=== PATIENT | female | born 1995 | race Caucasian/White ===

== ENCOUNTER → 2018-01-26 09:02 | Outpatient (CLI) | payer OTHER, MEDICAID, SELFPAY ==
--- NOTE | 2018-01-26 | DI.US.S_ITS ---
PROCEDURE: US ABDOMEN COMPLETE INDICATIONS: IUD PLACEMENT ABDOMINAL BLOATING TECHNIQUE: Real-time scanning was performed of the abdominal and retroperitoneal organs, with image documentation. COMPARISON: None. FINDINGS: Liver: Liver is normal in size and homogeneous in echotexture. Gallbladder: Gallbladder is unremarkable. Wall thickness is within normal limits measuring 1.0 mm. Biliary ducts: Intrahepatic bile ducts are non-dilated. Extrahepatic bile duct caliber measures 4.0 mm. Normal is 6-7 mm or less in diameter, or 10 mm or less post-cholecystectomy. Pancreas: Visualized portions of the pancreas are sonographically normal. Spleen: Spleen is normal in size and homogeneous in echotexture. Kidneys: Kidneys are normal in size and echotexture. Right kidney measures 10.6 cm long; left kidney measures 10.4 cm long. No hydronephrosis or nephrolithiasis. No solid masses. Aorta: Visualized aorta is normal in caliber at less than 3 cm. Iliacs: Proximal common iliac arteries are normal in caliber at less than 2.5 cm. IVC: Intrahepatic inferior vena cava is patent. Miscellaneous: No free abdominal fluid. IMPRESSION: 1. Unremarkable exam. Dictated by: Jossy Barrios M.D. on 01/26/2018 at 11:57 Approved by: Jossy Barrios M.D. on 01/26/2018 at 12:02
--- NOTE | 2018-01-26 | DI.US.S_ITS ---
PROCEDURE: US PELVIC COMPLETE INDICATIONS: IUD PLACEMENT ABDOMINAL BLOATING TECHNIQUE: Real-time scanning was performed of the pelvic organs, with image documentation. Additional endovaginal scanning was necessary due to incomplete visualization of the adnexal and endometrial structures by transabdominal scanning. COMPARISON: [facility], , US ABDOMEN COMPLETE, 01/26/2018, 9:44. FINDINGS: Transabdominal scanning: Limited scanning through the kidneys shows no hydronephrosis. No pathologic free abdominal or pelvic fluid. Endovaginal scanning: Uterus: Uterus is normal in size at 8.2 x 3.4 x 6.1 cm. The endometrium measures 9 mm in combined thickness. IUD is present and appears to be in appropriate position. Ovaries: Right ovary measures 39 x 20 x 21 mm. Left ovary measures 40 x 27 x 22 mm. IMPRESSION: 1. IUD as above. Dictated by: Jossy Barrios M.D. on 01/26/2018 at 12:15 Approved by: Jossy Barrios M.D. on 01/26/2018 at 12:16
== END ==
PROVIDERS: PCP Nurse Practitioner Family; Visit Provider Nurse Practitioner Family
DX: R14.0 Abdominal distension (gaseous) (principal); Z30.431 Encounter for routine checking of intrauterine contraceptive device
CPT/HCPCS: 76700; 76830; 76856

== ENCOUNTER → 2020-03-19 11:09 | Outpatient (ROUT) | payer OTHER, SELFPAY | PROVIDERS: Visit Provider Family Medicine | DX: N89.8 Other specified noninflammatory disorders of vagina (principal) | CPT/HCPCS: 87070; 87205 ==

== ENCOUNTER → 2021-05-08 12:24 | Outpatient (CLI) | payer OTHER, MEDICAID, SELFPAY ==
--- NOTE | 2021-05-08 12:27 | DI.US.S_ITS ---
PROCEDURE: US OB <= 14 WEEKS FETUS INDICATIONS: DATING OUTSIDE/PRIOR DATING DATA: Last menstrual period (LMP): 03/05/2021. LMP-based estimated date of delivery (JIGNA): 12/10/2021. First dating scan (date and location): 05/08/2021. Estimated date of delivery (JIGNA) from first dating scan: 12/08/2021. The calculations are made using the ultrasound generated JIGNA of 12/08/2021. TECHNIQUE: Real-time scanning was performed of the fetuses and maternal pelvic organs, with image documentation. Endovaginal scanning: Performed for better visualization of the fetuses and maternal adnexal structures. COMPARISON: None. FINDINGS: Intrauterine gestation identified with a crown-rump length of 2.7 centimeters, corresponding to gestational age of 9 weeks 3 days. heart rate detected at 163 beats per minute. Yolk sac noted. Small perigestational hemorrhage identified. Small corpus luteum cyst. Ovaries otherwise normal. IMPRESSION: Single live intrauterine gestation with estimated ultrasound age of 9 weeks 3 days. Dictated by: Nicholas France M.D. on 05/08/2021 at 14:17 Approved by: Nicholas France M.D. on 05/08/2021 at 14:19
== END ==
PROVIDERS: PCP Family Medicine; Referring Provider Obstetrics & Gynecology; Visit Provider Internal Medicine
DX: Z36.87 Encounter for antenatal screening for uncertain dates (principal); Z3A.09 9 weeks gestation of pregnancy
CPT/HCPCS: 76801; 76817

== ENCOUNTER → 2021-05-20 11:07 | Outpatient (CLI) | payer OTHER, MEDICAID, SELFPAY ==
[2021-05-20 15:54] LABS: Urine N gonorrhoeae NOT DETECTED
[2021-05-20 16:01] LABS: Urine Chlamydia NOT DETECTED
== END ==
PROVIDERS: PCP Family Medicine; Visit Provider Obstetrics & Gynecology
DX: Z34.81 Encounter for supervision of other normal pregnancy, first trimester (principal); Z3A.11 11 weeks gestation of pregnancy
CPT/HCPCS: 87491; 87591

== ENCOUNTER → 2021-06-06 15:14 | Outpatient (CLI) | payer OTHER, MEDICAID, SELFPAY ==
[2021-06-06 15:48] LABS: Specimen Label NATERA KIT
[2021-06-06 16:03] LABS: Add Manual Diff / Slide Review NO; Basophils Absolute Auto 100 /uL (0-100); Basophils Percent Auto 0.4 % (0-2); Eosinophils Absolute Auto 200 /uL (0-450); Eosinophils Percent Auto 1.3 % (2-4); Hematocrit 38.4 % (36-46); Hemoglobin 13.7 g/dL (12.0-16.0); Lymphocytes Absolute Auto 2000 /uL (1100-4500); Lymphocytes Percent Auto 16.2 % (25-40); Mean Corpuscular HGB Conc 35.7 % (30-36); Mean Corpuscular Hemoglobin 31.6 PG (26-34); Mean Corpuscular Volume 88.5 fL (80-100); Monocytes Absolute Auto 500 /uL (0-900); Monocytes Percent Auto 3.7 % (3-14); Neutrophils Absolute Auto 9800 /uL (1500-7000); Neutrophils Percent Auto 78.4 % (50-75); Platelet Count 278 X10^3/uL (150-400); Red Blood Cell Count 4.34 X10^6/uL (4.0-5.2); Red Cell Distribution Width 12.8 % (11.6-14.8); White Blood Cell Count 12.5 X10^3/uL (4.5-11.0)
[2021-06-06 17:01] LABS: Hepatitis B Surface Antigen NEGATIVE s/c (NEGATIVE); Rubella Antibody IgG 12.5 IU/mL (>15)
[2021-06-06 17:12] LABS: Appearance Urine UA SL CLOUDY; Bilirubin Urine UA NEGATIVE (NEGATIVE); Color Urine UA YELLOW; Glucose Urine UA NEGATIVE (Negative); Ketones Urine UA TRACE (NEGATIVE); Leukocyte Esterase Urine UA NEGATIVE (NEGATIVE); Nitrite Urine UA NEGATIVE (Negative); Occult Blood Urine UA NEGATIVE (Negative); Protein Urine UA NEGATIVE (Negative); Specific Gravity Urine UA >=1.030 (1.000-1.035); Urobilinogen Urine UA 0.2 E.U./dL (0.2)
[2021-06-06 17:15] LABS: pH Urine UA 5.5 (4.5-8.0)
[2021-06-06 17:30] LABS: HIV 1 & 2 Ab/Ag 4th Gen Combo NEGATIVE (NEGATIVE); Hep C Virus Ab w/Reflex Quant NEGATIVE s/c (NEGATIVE)
[2021-06-07 04:26] LABS: RPR Screen Non Reactive (Non Reactive)
[2021-06-07 09:01] LABS: Varicella IgG Antibody <135 index (Immune >165)
== END ==
PROVIDERS: PCP Family Medicine; Referring Provider Obstetrics & Gynecology; Visit Provider Obstetrics & Gynecology
DX: Z36.0 Encounter for antenatal screening for chromosomal anomalies; Z34.90 Encounter for supervision of normal pregnancy, unspecified, unspecified trimester
CPT/HCPCS: 36415; 80055; 81003; 86787; 86803; 86850; 86900; 86901; 87086; 87389

== ENCOUNTER → 2021-07-16 10:44 | Outpatient (CLI) | payer OTHER, MEDICAID, SELFPAY ==
[2021-07-18 20:26] LABS: AFP Value 76.5 ng/mL (.); Gestational Age Ultrasound (.); Insulin Dep Diabetes No (.); OSBR Risk 1IN 3311 (.); Results Report (.); Test Results *Screen Negative* (.)
== END ==
PROVIDERS: PCP Family Medicine; Referring Provider Obstetrics & Gynecology; Visit Provider Obstetrics & Gynecology
DX: Z34.82 Encounter for supervision of other normal pregnancy, second trimester (principal); Z3A.19 19 weeks gestation of pregnancy
CPT/HCPCS: 36415; 82105

== ENCOUNTER → 2021-07-26 10:32 | Outpatient (CLI) | payer OTHER, MEDICAID, SELFPAY ==
--- NOTE | 2021-07-26 10:34 | DI.US.S_ITS ---
PROCEDURE: US OB >= 14 WEEKS FETUS INDICATIONS: Anatomy scan OUTSIDE/PRIOR DATING DATA: Last menstrual period (LMP): 03/05/2021 LMP-based estimated date of delivery (JIGNA): 12/10/2021. First dating scan (date and location): 05/08/2021. Estimated date of delivery (JIGNA) from first dating scan: 12/08/2021. The calculations are made using the ultrasound JIGNA of 12/08/2021. TECHNIQUE: Real-time scanning was performed of the fetus, with image documentation and biometric measurements. COMPARISON: None. FINDINGS: General: A single living intrauterine gestation is present. Presentation: Variable. Placenta: Placental position is anterior , without previa. Amniotic fluid index: 16.4 cm, normal range is 5-24 cm. heart rate: 144 beats per minute. Maternal cervical canal: 4.9 cm long. Normal lower limit is 2.5 cm. biometrics: Biparietal diameter: 22 weeks Head circumference: 21 weeks 3 days Abdominal circumference: 21 weeks 4 days Femur length: 20 weeks 3 days Clinically estimated gestational age: 20 weeks 5 days Composite gestational age from present scan: 21 weeks 3 days Estimated weight and percentile: 399 g; 66 percentile Anatomic survey: Neuro: Ventricles are non-dilated at less than 10 mm. Cisterna magna is normal at 3-11 mm. Cerebellum is normal in size and morphology. Nuchal skin fold: Normal at less than 6 mm between 14-21 weeks gestational age. Face: Nose and lips, facial profile are normal. Spine: No evidence for spina bifida. Heart: 4-chambered heart is present, and normal LVOT. RVOT not well seen. Diaphragm: Diaphragm is intact. Stomach: Left-sided stomach is present. Kidneys: No hydronephrosis. Normal is less than 5 mm in 2nd trimester, less than 7 mm in 3rd trimester. Cord: 3-vessel cord has orthotopic insertion. Bladder: Normal in size. Extremities: All 4 extremities identified. IMPRESSION: 1. Single living IUP redemonstrated and interval growth is normal. 2. RVOT not well visualized; otherwise normal anatomy. Follow-up recommended. We strive to produce accurate, complete, and clear reports of imaging services. To assist us in improving patient care, this report was composed using standard report templates and voice recognition software. Therefore, it may contain abnormal punctuation, insertions and/or omissions. Occasional wrong-word or sound-alike substitutions may occur. Though we review the report and make efforts to correct it, we do recommend that the report be read carefully in proper context to recognize any text inaccuracies. Dictated by: on 07/26/2021 at 11:37 Transcribed by: on 07/26/2021 at 11:39 Approved by: Antonio Verdugo M.D. on 07/31/2021 at 9:46
== END ==
PROVIDERS: PCP Family Medicine; Referring Provider Family Medicine; Visit Provider Family Medicine
DX: Z34.82 Encounter for supervision of other normal pregnancy, second trimester (principal); Z3A.21 21 weeks gestation of pregnancy
CPT/HCPCS: 76811

== ENCOUNTER → 2021-09-10 13:38 | Outpatient (CLI) | payer OTHER, MEDICAID, SELFPAY ==
[2021-09-10 14:55] LABS: Appearance Urine UA CLOUDY; Bilirubin Urine UA NEGATIVE (NEGATIVE); Color Urine UA YELLOW; Glucose Urine UA NEGATIVE (Negative); Ketones Urine UA NEGATIVE (NEGATIVE); Leukocyte Esterase Urine UA NEGATIVE (NEGATIVE); Nitrite Urine UA NEGATIVE (Negative); Occult Blood Urine UA NEGATIVE (Negative); Protein Urine UA NEGATIVE (Negative); Urobilinogen Urine UA 0.2 E.U./dL (0.2)
[2021-09-10 15:58] LABS: Hematocrit 34.7 % (36-46); Hemoglobin 11.9 g/dL (12.0-16.0)
[2021-09-10 16:38] LABS: GTT (PREG) 1 Hour PP 50gm Dose 125 mg/dL (76-139)
== END ==
PROVIDERS: PCP Family Medicine; Referring Provider Obstetrics & Gynecology; Visit Provider Obstetrics & Gynecology
DX: Z34.82 Encounter for supervision of other normal pregnancy, second trimester (principal); N39.0 Urinary tract infection, site not specified; Z3A.26 26 weeks gestation of pregnancy
CPT/HCPCS: 36415; 81003; 82950; 85014; 85018

== ENCOUNTER → 2021-11-07 15:36 | Outpatient (CLI) | payer OTHER, MEDICAID, SELFPAY ==
--- NOTE | 2021-11-07 15:37 | DI.US.S_ITS ---
PROCEDURE: US OB LIMITED INDICATIONS: Growth OUTSIDE/PRIOR DATING DATA: Last menstrual period (LMP): 03/05/21. LMP-based estimated date of delivery (JIGNA): 12/10/21. First dating scan (date and location): 05/08/21. Estimated date of delivery (JIGNA) from first dating scan: 12/08/21. The calculations are made using the sonographic JIGNA of 12/08/21. TECHNIQUE: Real-time scanning was performed of the fetus, with image documentation and biometric measurements. Endovaginal scanning: Not performed COMPARISON: [facility], US, US OB LIMITED, 08/21/2021, 10:52. FINDINGS: General: A single living intrauterine gestation is present. Presentation: Vertex. Placenta: Placental position is anterior , without previa. Amniotic fluid index: 18.1 cm, normal range is 5-24 cm. Single deepest vertical pocket is 8.0 cm. heart rate: 137 beats per minute. Maternal cervical canal: Closed and 5.3 cm long. Normal lower limit is 2.5 cm. biometrics: Biparietal diameter: 9.3 cm, 37 weeks, five days Head circumference: 33.4 cm, 38 weeks, one day Abdominal circumference: 35.3 cm, 39 weeks, two days Femur length: 6.9 cm, 35 weeks, two days Clinically estimated gestational age: 35 weeks, four days Composite gestational age from present scan: 37 weeks, four days Estimated weight and percentile: 3388 g, 97th percentile compared to first-trimester JIGNA. IMPRESSION: 1. Single living in vertex presentation. 2. Composite gestational age by today's measurements is two weeks ahead of the initially assigned gestational age by ultrasound. 3. Estimated weight is at the 97th percentile. 4. Amniotic fluid index is normal. We strive to produce accurate, complete, and clear reports of imaging services. To assist us in improving patient care, this report was composed using standard report templates and voice recognition software. Therefore, it may contain abnormal punctuation, insertions and/or omissions. Occasional wrong-word or sound-alike substitutions may occur. Though we review the report and make efforts to correct it, we do recommend that the report be read carefully in proper context to recognize any text inaccuracies. Dictated by: Mahsa Hilario M.D. on 11/07/2021 at 17:04 Approved by: Mahsa Hilario M.D. on 11/07/2021 at 17:08
== END ==
PROVIDERS: PCP Family Medicine; Referring Provider Obstetrics & Gynecology; Visit Provider Obstetrics & Gynecology
DX: Z34.83 Encounter for supervision of other normal pregnancy, third trimester (principal); Z3A.36 36 weeks gestation of pregnancy
CPT/HCPCS: 76816

== ENCOUNTER → 2021-11-13 19:19 | Outpatient (ROUT) | payer OTHER, MEDICAID, SELFPAY | PROVIDERS: PCP Family Medicine; Visit Provider Nurse Practitioner Obstetrics & Gynecology | DX: Z34.93 Encounter for supervision of normal pregnancy, unspecified, third trimester (principal); Z36.85 Encounter for antenatal screening for Streptococcus B; Z3A.36 36 weeks gestation of pregnancy | CPT/HCPCS: 87081 ==

== ENCOUNTER 2021-12-05 06:53 | Inpatient (IN) | payer OTHER, MEDICAID, SELFPAY ==
--- NOTE | 2021-12-05 07:11 | PM.OBHP.1 ---
OB HPI Date/Time Date of admission: 12/05/21 Date Patient Seen: 12/05/21 Time Patient Seen: 07:12 History of Present Condition Chief complaint: Induction : 3 Para: 1 Estimated Date of Delivery: 12/10/21 Estimated Gestational Age (weeks): 39.2 Narrative: Aide Boles is a 26 year old female @ 39w2d here for scheduled elective induction. She was seen in clinic yesterday afternoon at which time she was 3 cm/70%/-3 and a 60 cc lassiter balloon catheter was placed. The balloon fell out around 0200 this morning. She arrives this morning with mild contractions. She has a history of long second stage and vacuum delivery with her first and elected to pursue an induction this . She has had an uncomplicated course of care and transferred to [facility] at 35w. VS: BP 153/83, HR 74 bpm, T 35.8 C Indications Indication for induction OB: other (elective) History of Present care: good care, initiated at week # (7w), number of visits (15) and pounds weight gain (34) Ultrasounds: normal 1st trimester US and normal mid trimester US Obstetrical complications: none Medical complications: none Preadmission Labs Blood type: O (+) positive -: Antibody screen: negative, GBS status: negative, HBsAG: negative, HIV: negative and RPR/VDLR: negative -: Chlamydia screen: not detected and Gonorrhea screen: not detected -: Rubella: equivocal and Varicella: not immune HCT: 34.7 HCAB: negative PAP: Abnormal (07/2020 ASCUS, +HPV) 1 hr GTT: 125 Narrative: MsAFP negative Evaluation Evaluation Baseline heart rate: 135 Variability: Moderate (11-25) monitor accelerations: Present Monitor Decelerations: Variable Contraction Frequency (minutes): 5 Uterine Contraction Intensity: Mild Status: Category ll (overall reassuring) [facility] Medical History Cervical somatic dysfunction Chronic left-sided low back pain with left-sided sciatica Cranial somatic dysfunction Depression (~2018) Lumbar region somatic dysfunction Pelvic somatic dysfunction PTSD (post-traumatic stress disorder) (~2018) Sacral region somatic dysfunction Tension headache, chronic Vaginal delivery Worsening vision Surgical History [place] teeth extracted (~05/2019) Family History Mother Depression Bipolar 1 disorder Stillbirth Family estrangement Brother Depression Bipolar 1 disorder Sister Depression Bipolar 1 disorder Grandmother Diabetes mellitus Father Heart disease Heavy smoker Social History marital status: unmarried,living together number of children: 1 household members: significant other, children and friend(s) lives independently: Yes caregiver/support person: No housing: house pets and animals: Yes (1 dog) education level: high school occupational status: employed current occupational exposures/hazards: No special jordyn needs: No seatbelt use: always helmet use: Yes water heater temp set < 120 deg: Yes fire extinguisher in home: No carbon monox detector in home: Yes firearms in home: Yes firearms unloaded and locked: Yes do you feel safe at home: Yes Smoking Status: Never smoker second hand exposure: Yes (As a child, often. ) alcohol intake: former substance use type: does not use during the past year weight has: decreased > 10 lbs well-balanced diet: daily or most days daily servings fruits/ve-4 caffeine: Yes eating out: rarely or never Type(s) of exercise: regular exercise and normal ROM and activity frequency: 3-4 times per week duration: 45-60 minutes/day Meds Home Medications and Allergies Home Medications Medication Instructions Recorded Confirmed Type prenat.vits,alem,svk-ifnq-jzadz 1 tab PO DAILY 05/17/21 10/21/21 History Allergies Allergy/AdvReac Type Severity Reaction Status Date / Time INGREDIENT: NKA - NO KNOWN Allergy Unknown Uncoded 10/21/21 10:37 ALLERGIES Review of Systems Review of Systems ROS: Yes All systems reviewed with the patient and are negative except as otherwise documented OB Exam Resp Effort & Inspection: normal respiratory effort Cardio Rate: regular rate Rhythm: regular rhythm Presentation: vertex Assessment and Plan Assessment and Plan Assessment and Plan narrative: Assessment: Primip @ 39w2d Elective induction No indication for GBS prophylaxis Rubella equivocal Elevated BP without dx of HTN Category II FHR, overall reassuring Plan: Routine admit orders with preeclampsia panel Pitocin per protocol, will consider AROM once head well applied Review preferences Reassess in 4 hours or sooner PRN
[2021-12-05 08:43] LABS: Add Manual Diff / Slide Review NO; Basophils Absolute Auto 100 /uL (0-100); Basophils Percent Auto 0.4 % (0-2); Eosinophils Absolute Auto 100 /uL (0-450); Eosinophils Percent Auto 0.8 % (2-4); Hematocrit 31.7 % (36-46); Hemoglobin 10.7 g/dL (12.0-16.0); Lymphocytes Absolute Auto 1700 /uL (1100-4500); Lymphocytes Percent Auto 12.6 % (25-40); Mean Corpuscular HGB Conc 33.9 % (30-36); Mean Corpuscular Hemoglobin 27.8 PG (26-34); Monocytes Absolute Auto 700 /uL (0-900); Monocytes Percent Auto 4.8 % (3-14); Neutrophils Absolute Auto 11200 /uL (1500-7000); Neutrophils Percent Auto 81.4 % (50-75); Platelet Count 182 X10^3/uL (150-400); Red Blood Cell Count 3.86 X10^6/uL (4.0-5.2); Red Cell Distribution Width 14.5 % (11.6-14.8); White Blood Cell Count 13.8 X10^3/uL (4.5-11.0)
[2021-12-05 08:52] LABS: COVID19 -Nasal RAPID Negative (Negative)
[2021-12-05 08:56] LABS: Aspartate Aminotransferase 33 IU/L (14-36); BUN Creatinine Ratio 13.7 (6-22); Blood Urea Nitrogen 7 mg/dL (7-17); Estimated Glomerular Filt Rate > 60 mL/min (>60)
[2021-12-05] MEDS: LACTATED RINGERS 1,000 ML 100 ML IV (09:37)
[2021-12-05] MEDS: OXYTOCIN PREMIX 30 UNIT/500 ML PLAST..BAG IV (09:42)
[2021-12-05 10:03] VITALS: BP 139/91
[2021-12-05 10:16] LABS: Protein (Total) Urine Random 15 mg/dL (0-12); Protein Creatinine Ratio Urine 0.18 GRAM/24H
[2021-12-05] MEDS: CALCIUM CARBONATE 500 MG TAB 1000 MG PO (10:49)
--- NOTE | 2021-12-05 11:16 | PM.OBPNLAB ---
Date/Time Date Patient Seen: 12/05/21 Time Patient Seen: 11:17 Pain Control Pain control: tolerating well Comments: Aide is coping well with more frequent contractions, however they are still described as mild in intensity. She is comfortable on the birthing ball currently. She has had intermittent variable decelerations resolved with upright positioning. She continues to desire an epidural but would like to wait for more intense contractions. VS: BP 120/83, HR 89 bpm, T 35.8 C Pelvic Exam Dilation (cm): 6.5 Effacement (%): 80 station: 0 Amniotic membrane status: Intact Contractions Monitor mode: External Pitocin rate (mU/min): 6 Contraction frequency (min): 3 Contraction duration (min): 1 Contraction pattern: Regular Contraction intensity: Mild Status status: Category ll (overall reassuring) Heart Rate Baseline: 140 Monitor Accelerations: Present Monitor Decelerations: Variable Monitor Variability: Moderate Assessment and Plan Comments: Assessment: Ongoing induction Category II, overall reassuring Plan: Reassess in 4 hours or sooner PRN
[2021-12-05] MEDS: FENT 2MCG/ML BUPIV 0.125% EPI 200 MCG/100 ML PLAST..BAG 8 MCG EPIDURAL (13:38)
--- NOTE | 2021-12-05 14:28 | PM.OBPNLAB ---
Date/Time Date Patient Seen: 12/05/21 Time Patient Seen: 14:28 Pain Control Pain control: epidural (working with anesthesia of left side discomfort) Pelvic Exam Dilation (cm): 8 Effacement (%): 90 station: -2 Amniotic membrane status: Intact (bulging) Comments: OP presentation Contractions Monitor mode: External Pitocin rate (mU/min): 6 Contraction frequency (min): 2 Contraction duration (min): 1 Contraction pattern: Regular Contraction intensity: Moderate Status status: Category ll (overall reassuring) Heart Rate Baseline: 130 Monitor Accelerations: Present Monitor Decelerations: Variable Monitor Variability: Moderate Assessment and Plan Assessment: active labor Plan: continuous present management Comments: Recommend position changes with peanut ball and exaggerated john position. Reassess in 4 hours or sooner, PRN.
--- NOTE | 2021-12-05 15:49 | PM.OBPNLAB ---
Date/Time Date Patient Seen: 12/05/21 Time Patient Seen: 15:50 Pain Control Pain control: epidural Comments: At 1516, the patient had spontaneous rupture of membranes with copious clear fluid and CNM was notified. Immediately following, a prolonged deceleration was noted down to 60 bpm. Pitocin was stopped, patient was assisted to side lying, then to hands and knees, fluid bolus and O2 administered. CNM was called to bedside and MD on unit was notified. Dr. Adler performed vaginal exam, and placed FSE. At the time of CNM arrival at 1535, FHR recovered to 100-120 bpm with moderate variability and intermittent early decelerations. Pelvic Exam Dilation (cm): 8 Effacement (%): 90 station: -1 Amniotic membrane status: Intact (bulging) Comments: edematous cervix Contractions Monitor mode: External Pitocin rate (mU/min): 0 Contraction frequency (min): 2 Contraction pattern: Regular Contraction intensity: Moderate Status status: Category ll (overall reassuring) Heart Rate Baseline: 125 Monitor Accelerations: Absent Monitor Decelerations: Early Monitor Variability: Moderate Comments: FSE in place but inconsistent, now monitoring with external monitor. Assessment and Plan Comments: Assessment: Prolonged deceleration likely due to rapid SROM Category II FHR, overall reassuring Plan: Continue close monitoring.
--- NOTE | 2021-12-05 18:21 | PM.OBPNLAB ---
Date/Time Date Patient Seen: 12/05/21 Time Patient Seen: 18:21 Pain Control Pain control: epidural Comments: Has been sitting up in bed, comfortable. There was an additional prolonged deceleration at 1556 that was shorter and not as deep with good variability. Since that time, the FHR has been primarily Cat I with rare variable decelerations. VS: BP 123/82, HR 74bpm, T 35.7C Temporal Pelvic Exam Dilation (cm): 8 Effacement (%): 90 station: -1 Amniotic membrane status: Intact (bulging) Comments: Significant decrease in edema (to cervix) noted Contractions Monitor mode: External Pitocin rate (mU/min): 0 Contraction frequency (min): 2 Contraction duration (min): 1 Contraction pattern: Regular Contraction intensity: Moderate Status status: Category ll (overall reassuring) Heart Rate Baseline: 135 Monitor Accelerations: Present Monitor Decelerations: Variable Monitor Variability: Moderate Assessment and Plan Assessment: induction ongoing Plan: begin patient augmentation (recommend re-starting pitocin @ 1mu/min) Comments: Notified patient of decrease in swelling to cervix, bit no change in dilation. Pt agrees with plan to slowly restart pitocin and continue to monitor. Reassess in 2-4 hours or sooner, PRN.
--- NOTE | 2021-12-05 21:56 | PM.OBPNLAB ---
Pain Control Comments: Aide has continued to have adequate pain management with epidural. At 1956, deceleration to 75 bpm lasting ~five minutes; pitocin was stopped, pt was positioned in left tilt semi-fowlers, O2 was started. Resolution to a FHR baseline of 130 with moderate variability. Reassuring category II with intermittent variables since that time. Pelvic Exam Dilation (cm): 9.5 Effacement (%): 100 station: +1 Amniotic membrane status: Ruptured Comments: +anterior lip Contractions Monitor mode: External Pitocin rate (mU/min): 0 Contraction frequency (min): 2 Contraction pattern: Regular Contraction intensity: Moderate Status status: Category ll (overall reassuring) Heart Rate Baseline: 140 Monitor Accelerations: Present Monitor Decelerations: Variable Monitor Variability: Moderate Assessment and Plan Comments: Plan: Continue present management with anticipated spontaneous vaginal delivery.
--- NOTE | 2021-12-05 23:20 | P.PCNOB_ITS ---
Events: Labor Induction Labor & Delivery Delivery date: 12/05/21 Intrapartal Events: Deceleration Cervical ripening method: per Garcia bulb protocol Induction method: per pitocin protocol Delivery monitor: external FHT and external uterine Route of delivery: Episiotomy description: None L&D Laceration Description: Perineal - 1st Degree Delivery repair: chromic (3.0) Estimated blood loss (mL): 200 Anesthesia Type: Epidural Complications: Prolonged decelerations x3 during labor. GHTN developed during labor. Narrative: Labor progressed slowly with pitocin off for FHR deceleration. Examined at C/C/+1 and encouraged to push. First push was effective and led to FHR deceleration to 80's. RT was called to standby for the . FHR Recovered between contractions, but continued to decrease with every effective push though a short second stage. NSVB of a viable baby boy in FRED position with a double tight nuchal and single body cord. There was a 2 minute shoulder dystocia that was resolved with McRobert's maneuver and reduction of the posterior arm. was placed on maternal abdomen for drying and stimulation with minimal respiratory effort. At 30 seconds, the cord was double clamped and cut and the was taken to the warmer where a cry was heard immediately. 30 units of pitocin in 500mL LR was started at a bolu for AMTSL for brisk vaginal bleeding. Hospital cord blood sample was collected. Gentle cord traction and a single maternal push led to spontaneous, Schultze delivery of an apparently intact placenta, membranes and 3VC. Fundus immediately form and bleeding slowed. Inspection revealed a short 1st degree perineal laceration which was repaired with 3.0 Chromic in the usual fashion under adequate epidural anesthesia. EBL 200mL. Both mother and baby stable and skin to skin as I left the room. [place] Baby 1: Infant gender: Male Presentation: vertex Position: Left Occiput Anterior Placenta delivery description: Spontaneous Cord Vessel Description: 3 Vessels, Nuchal Cord (x2), Tight and Around Body x1 score (1 min): 6 score (5 min): 8 weight: 3.682 kg Plan for aftercare: Routine care
[2021-12-06] MEDS: KETOROLAC 30 MG/ML VIAL IV (00:19)
[2021-12-06] MEDS: DERMOPLAST SPRAY 20% 60 ML 1 SPRAY TOP (00:19)
[2021-12-06] MEDS: IBUPROFEN 600 MG TABLET PO ×3 (05:48→18:27)
--- NOTE | 2021-12-06 08:30 | PM.OBDS.1 ---
Discharge Providers Provider Date of admission: 12/05/21 06:53 Discharge Date: 12/06/21 Primary care physician: Jairon Escalante MD Consults: 12/06/21 23:10 Consult to Gas Meter Repairer Routine Comment: Discharge provider: Amanda Lal CNM Summary Hospital Course Date Patient Seen: 12/06/21 Diagnoses: O70.0 Hospital Course: Day of delivery 10 hours s/p NSVB w/ 1st degree perineal laceration. Peripartum Data Infant Delivery Method: Natural Vaginal Laceration Description: Perineal - 1st Degree Episiotomy description: None Procedures: O70.0 [place] 1: Gender: Male Disposition of : home Discharge Diagnosis (1) First degree perineal laceration during delivery: Status: Acute (2) Gestational hypertension: Status: Acute Status at Discharge Cognitive/behavioral status at discharge: oriented and calm Functional status at discharge: independent ambulation Overall status at discharge: patient is progressing back to baseline Time Spent with Patient Time attestation: Total time spent providing and/or coordinating discharge services: Objective Labs Result Diagrams: 12/05/21 08:20 12/05/21 08:20 Labs: Laboratory Results - last 24 hr 12/05/21 12/05/21 12/05/21 07:35 07:35 08:20 WBC RBC Hgb Hct MCV MCH MCHC RDW Plt Count Neut % (Auto) Lymph % (Auto) [place] % (Auto) Eos % (Auto) Baso % (Auto) Neut # (Auto) Lymph # (Auto) [place] # (Auto) Eos # (Auto) Baso # (Auto) BUN Creatinine Estimated GFR BUN/Creatinine Ratio Uric Acid AST U Random Total Protein 15 H Urine Creatinine 82.0 Protein/Creatinin Ratio 0.18 SARS-CoV-2 (PCR) Negative Blood Type O Positive Antibody Screen Negative 12/05/21 12/05/21 08:20 08:20 WBC 13.8 H RBC 3.86 L Hgb 10.7 L Hct 31.7 L MCV 82.0 MCH 27.8 MCHC 33.9 RDW 14.5 Plt Count 182 Neut % (Auto) 81.4 H Lymph % (Auto) 12.6 L [place] % (Auto) 4.8 Eos % (Auto) 0.8 L Baso % (Auto) 0.4 Neut # (Auto) 99777 H Lymph # (Auto) 1700 [place] # (Auto) 700 Eos # (Auto) 100 Baso # (Auto) 100 BUN 7 Creatinine 0.51 L Estimated GFR > 60 BUN/Creatinine Ratio 13.7 Uric Acid 4.0 AST 33 U Random Total Protein Urine Creatinine Protein/Creatinin Ratio SARS-CoV-2 (PCR) Blood Type Antibody Screen Exam Vital Signs (past 8 hours): BP 140/90, HR 103, RR 16, T 97.7F Temporal Other: Fundus firm @ U, lochia scant to moderate, perineum well approximated Discharge Plan Discharge Plan Patient Disposition: Home Discharge orders & Medications Prescriptions: New ibuprofen 600 mg Tablet 600 mg PO Q6HR PRN (Reason: Pain, Mild (1-3)) 14 Days Qty: 60 0RF Continued prenat.vits,alem,dbi-uqxp-mxatv Tablet 1 tab PO DAILY Follow up/Referrals: Amanda Lal CNM [[facility]] - (Follow-up in office for BP check 12/09/2021 @ 3:45pm Follow-up by telehealth 12/20/21 @ 11:15am Follow-up in office 01/15/2022 @ 1:45pm) Jairon Escalante MD [Primary Care Provider] - Diet/Activity/Treatments Diet: Regular Activity: pelvic rest x 6 weeks Skin/Wound/Dressing Care Report to your healthcare provider any signs of infection, such as:: chills, fever, increased pain, unusual drainage and unusual redness Visit Report/Discharge Packet Instructions: DI for Depression Discharge Data Primary Care Provider: Jairon Escalante
[2021-12-06 18:11] VITALS: BP 113/98; PULSE 75; RESP 17; TEMP 36.9
== END 2021-12-06 19:00 | disposition home or self-care (01) | DRG 540 ==
PROVIDERS: Admitting Provider Nurse Practitioner Obstetrics & Gynecology; PCP Family Medicine; Referring Provider Nurse Practitioner Obstetrics & Gynecology; Visit Provider Nurse Practitioner Obstetrics & Gynecology
DX: O13.4 Gestational [pregnancy-induced] hypertension without significant proteinuria, complicating childbirth (principal); Z3A.39 39 weeks gestation of pregnancy; Z37.0 Single live birth; O70.0 First degree perineal laceration during delivery; O76 Abnormality in fetal heart rate and rhythm complicating labor and delivery; O42.02 Full-term premature rupture of membranes, onset of labor within 24 hours of rupture; O66.0 Obstructed labor due to shoulder dystocia; O69.81X0 Labor and delivery complicated by cord around neck, without compression, not applicable or unspecified; Z20.822 Contact with and (suspected) exposure to COVID-19
CPT/HCPCS: 01967; 36415; 59050; 82570; 84156; 84450; 84550; 85025; 86850; 86900; 86901; 87635; C9803; G0379; J1885; J2590

== ENCOUNTER 2023-05-31 23:23 | Inpatient (IN) | payer OTHER, MEDICAID, SELFPAY ==
--- NOTE | 2023-05-31 23:35 | PM.OBHP.1 ---
OB HPI Date/Time Date of admission: 05/31/23 Date Patient Seen: 05/31/23 Time Patient Seen: 23:36 History of Present Condition Chief complaint: Labor : 4 Para: 2 Estimated Date of Delivery: 06/04/23 Estimated Gestational Age (weeks): 39w3d Narrative: Aide Boles is a 28 year old female, @ 39w3d by 7w6d US presenting for evaluation of labor. Reports contractions starting around 6pm and now are strong and every 7minutes. Denies vaginal bleeding, leaking of fluid, or s/sx of ORTEGA, vision changes, RUQ pain. Endorses movement. Current notable for LGA (98%, EFW 3416g @ 38w4d). Interested in low-intervention . Partner, Srinivas present. Received care with CNMs. History of Present care: good care, initiated at week # (8w3d) and number of visits (12) Dating criteria: LMP confirmed by 1st trimester US Ultrasounds: abnormal US findings (20w0d US (US dating 22w0d with EFW >95%); 30w5d US (US dating 34w4d with EFW of 2358.2g and 97.%); 35w4d (US dating 38w4d with EFW of 3416g and 98%)) and other (38w6d NILTON of 10.86cm, MVP >3cm) Preadmission Labs Blood type: O (+) positive -: Antibody screen: negative, GBS status: negative, HBsAG: negative, HIV: negative and RPR/VDLR: negative -: Chlamydia screen: not detected and Gonorrhea screen: not detected -: Rubella: immune and Varicella: not immune HCT: 32.6 HCAB: negative PAP: Normal Cell-free DNA: negative Urine: negative 1 hr GTT: 115 Prior (ies) History: FAVD on 12/24/2016; following IOL for GHTN on 12/05/2021 Evaluation Evaluation Baseline heart rate: 115 Variability: Moderate (11-25) monitor accelerations: Present Monitor Decelerations: Absent Contraction Frequency (minutes): 8 Uterine Contraction Intensity: Moderate Status: Category l Dilation (cm): 4 Effacement (%): 50 station: -2 Position of cervix: posterior Consistency: soft PFSH Medical History Lumbar region somatic dysfunction Worsening vision Sacral region somatic dysfunction Pelvic somatic dysfunction Chronic left-sided low back pain with left-sided sciatica Cervical somatic dysfunction Cranial somatic dysfunction Tension headache, chronic PTSD (post-traumatic stress disorder) (~2018) Depression (~2018) Vaginal delivery Surgical History [place] teeth extracted (~05/2019) Family History Mother Depression Bipolar 1 disorder Stillbirth Family estrangement Brother Depression Bipolar 1 disorder Sister Depression Bipolar 1 disorder Grandmother Diabetes mellitus Father Heart disease Heavy smoker Social History marital status: unmarried,living together number of children: 1 household members: significant other, children and friend(s) lives independently: Yes caregiver/support person: No housing: house pets and animals: Yes (1 dog) education level: high school occupational status: employed current occupational exposures/hazards: No special jordyn needs: No seatbelt use: always helmet use: Yes water heater temp set < 120 deg: Yes fire extinguisher in home: No carbon monox detector in home: Yes firearms in home: Yes firearms unloaded and locked: Yes do you feel safe at home: Yes Smoking Status: Never smoker second hand exposure: Yes (As a child, often. ) alcohol intake: former substance use type: does not use during the past year weight has: decreased > 10 lbs well-balanced diet: daily or most days daily servings fruits/ve-4 caffeine: Yes eating out: rarely or never Type(s) of exercise: regular exercise and normal ROM and activity frequency: 3-4 times per week duration: 45-60 minutes/day Meds Home Medications and Allergies Home Medications Medication Instructions Recorded Confirmed Type prenat.vits,alem,biy-tnbd-mznvd 1 tab PO DAILY 05/17/21 05/29/23 History Allergies Allergy/AdvReac Type Severity Reaction Status Date / Time INGREDIENT: NKA - NO KNOWN Allergy Unknown Uncoded 05/29/23 08:44 ALLERGIES Review of Systems Review of Systems ROS: Yes All systems reviewed with the patient and are negative except as otherwise documented OB Exam Vital signs Blood Pressure: 155/100 Pulse Rate: 77 Temperature: 96.8 F Resp Effort & Inspection: normal respiratory effort and able to speak in complete sentences Auscultation: clear to auscultation bilaterally Cardio Rate: regular rate Rhythm: regular rhythm Heart Sounds: S1 normal and S2 normal Extremities Lower extremity: Yes normal to inspection Presentation: vertex Objective Imaging US - abdomen: Radiologist's impression: OB US>14wks, Growth: Radiologist's impression: [address] [address] Ultrasound Report Signed Patient: Aide Boles MR#: [id number] : 1995 Acct:[id number] Age/Sex: 28 / F Date of Service: 05/31/23 Loc: LABOR [id number] Accession Number: [id number] Procedure: US OB limited Ordering Provider: Amanda Lal C.N.M. PROCEDURE: US OB LIMITED INDICATIONS: LABOR - MACROSOMIA OUTSIDE/PRIOR DATING DATA: Last menstrual period (LMP): 08/21/22. LMP-based estimated date of delivery (JIGNA): 06/04/23. First dating scan (date and location): 08/15/22. Estimated date of delivery (JIGNA) from first dating scan: 05/21/23. The calculations are made using the clinical JIGNA of 06/04/23. TECHNIQUE: Real-time scanning was performed of the fetus, with image documentation. Endovaginal scanning: Not performed COMPARISON: [facility], US, US OB GROWTH, 05/04/2023, 8:52. FINDINGS: A single living intrauterine gestation is present. Presentation: Vertex. Placenta: Placental position is anterior and right. Amniotic fluid index: 9.6 cm, normal range is 5-24 cm. Single deepest vertical pocket is 4.7 cm. heart rate: 133 beats per minute. Maternal cervical canal: Not seen Clinically estimated gestational age: 39 weeks three days Biparietal diameter 9.7 cm, 39 weeks four days Head circumference 34.9 cm, 40 weeks four days Abdominal circumference 36.8 cm, 40 weeks five days Femur length 7.6 cm, 38 weeks six days Composite gestational age 40 weeks 0 days Estimated weight 4019 g, 87th percentile IMPRESSION: Single living in vertex presentation has an estimated weight at the 87th percentile. Anterior placenta. Normal amniotic fluid volume. Dictated by: Mahsa Hilario M.D. on 06/01/2023 at 0:22 Approved by: Mahsa Hilario M.D. on 06/01/2023 at 0:34 Labs 06/01/23 00:25 06/01/23 00:25 Assessment and Plan Assessment and Plan Assessment and Plan narrative: A: Term multipara Early labor Hypertension Anemia Cat 1 FHR P: Admit to L&D Continue to monitor BPs for diagnositic criteria of GHTN vs pre-eeclampsia, urine Pr:Cr pending Will consult OB for severe range BPs x10 minutes Counseled on option for primary and provided RBA of primary vs given hx of 2min shoulder dystocia and current with 39w3d US showing AC>HC. Aide is discussing this with her partner and they will let us know their decision. May switch to intermittent auscultation for FHT monitoring Anticipated active management of third stage Recheck labor progression in 4-6hr or sooner as needed
--- NOTE | 2023-06-01 | PATH_ITS ---
[facility] Accession Number: [id number] No. of containers..01 Tissue . 01 Material submitted: . fallopian tube - BILATERAL FALLOPIAN TUBES . 01 Diagnosis: Bilateral Fallopian Tubes, Segment Excision: Segments of benign fallopian tubes without pathologic abnormalities. MRV 06/04/2023 1657 Local . 01 Electronically signed: . Yoel Fox MD, Pathologist NPI- [id number] . 01 Gross description: . The specimen is received in formalin labeled with the patient's name, , and bilateral fallopian tubes, consists of two unoriented, fimbriated fallopian tubes measuring 10.3 x 1.1 cm and 7.8 x 1.0 cm, respectively. Both tubes have violaceous smooth serosa with no cystic structures identified. The lumen is stellate and unremarkable. Band Salvager sections are submitted as follows: . A1: Longer fallopian tube to include one-half of bisected fimbriae and cross sections. A2: [place] fallopian tube to include one-half of bisected fimbriae and cross sections. ([id number]) /MRV 06/04/2023 1715 Local . 01 Pathologist provided ICD-10: Z30.2 . 01 CPT . 060112 Specimen Comment: A courtesy copy of this report has been sent to [facility] Pathology Performed at: 01 [facility] [address] [place] [address], [place], [place] [id number] MD Stephen Haley MD Phone: [phone]
[2023-06-01 00:41] LABS: Add Manual Diff / Slide Review NO; Basophils Absolute Auto 200 /uL (0-100); Basophils Percent Auto 1.4 % (0-2); Eosinophils Absolute Auto 200 /uL (0-450); Eosinophils Percent Auto 1.2 % (2-4); Hematocrit 31.3 % (36-46); Hemoglobin 10.2 g/dL (12.0-16.0); Lymphocytes Absolute Auto 2500 /uL (1100-4500); Lymphocytes Percent Auto 17.2 % (25-40); Mean Corpuscular HGB Conc 32.8 % (30-36); Mean Corpuscular Hemoglobin 24.5 PG (26-34); Mean Corpuscular Volume 74.8 fL (80-100); Monocytes Absolute Auto 700 /uL (0-900); Monocytes Percent Auto 4.4 % (3-14); Neutrophils Absolute Auto 11200 /uL (1500-7000); Neutrophils Percent Auto 75.8 % (50-75); Platelet Count 203 X10^3/uL (150-400); Red Blood Cell Count 4.18 X10^6/uL (4.0-5.2); Red Cell Distribution Width 16.9 % (11.6-14.8); White Blood Cell Count 14.8 X10^3/uL (4.5-11.0)
[2023-06-01 00:46] VITALS: BP 155/100
[2023-06-01 00:57] VITALS: PULSE 77; TEMP 36
[2023-06-01 00:57] LABS: Alanine Aminotransferase 14 IU/L (<35); Albumin 3.7 g/dL (3.5-5.0); Albumin Globulin Ratio 1.1 (1.0-2.8); Alkaline Phosphatase 323 U/L (38-126); Aspartate Aminotransferase 26 IU/L (14-36); Bilirubin Total 0.6 mg/dL (0.2-1.3); Blood Urea Nitrogen 11 mg/dL (7-17); Calcium 9.5 mg/dL (8.4-10.2); Carbon Dioxide 21 mmol/L (22-32); Chloride 105 mmol/L (98-107); Estimated Glomerular Filt Rate > 60 mL/min (>60); Globulin 3.5 g/dL (1.7-4.1); Glucose 91 mg/dL (70-100); HEMOLYSIS < 15 (0-50); Potassium 3.8 mmol/L (3.4-5.1); Sodium 133 mmol/L (137-145); Total Protein 7.2 g/dL (6.3-8.2)
[2023-06-01 01:19] VITALS: BP 155/100
--- NOTE | 2023-06-01 02:28 | PM.OBPNLAB ---
Date/Time Date Patient Seen: 06/01/23 Time Patient Seen: 02:28 Pain Control Pain control: tolerating well Comments: Aide asked more questions about what the steps of a and the potential risk of c-sections vs and the topics were discussed further with CNM. Aide decided to proceed with a . Aide continues to desire a bilateral tubal ligation for which she signed a consent in >30 days ago. Pelvic Exam Dilation (cm): 7 Effacement (%): 100 station: -1 Amniotic membrane status: Intact Contractions Monitor mode: External Contraction frequency (min): 3 Contraction duration (min): 1 Contraction intensity: Moderate Status status: Category l Heart Rate Baseline: 115 Monitor Accelerations: Present Monitor Decelerations: Absent Monitor Variability: Moderate Assessment and Plan Assessment: active labor Plan: Comments: A: Term multipara Active labor Macrosomia with a history of a shoulder dystocia (P2) Cat I FHR P: Consulted OB Back-up/ for a primary and he is on his way. RN and Coordinator notified.
[2023-06-01 02:47] LABS: Appearance Urine UA CLEAR; Bilirubin Urine UA NEGATIVE (NEGATIVE); Color Urine UA YELLOW; Glucose Urine UA NEGATIVE (Negative); Ketones Urine UA TRACE (NEGATIVE); Leukocyte Esterase Urine UA NEGATIVE (NEGATIVE); Nitrite Urine UA NEGATIVE (Negative); Occult Blood Urine UA NEGATIVE (Negative); Protein Urine UA 1+ (Negative); Urobilinogen Urine UA 0.2 E.U./dL (0.2); pH Urine UA 6.5 (4.5-8.0)
[2023-06-01] MEDS: AZITHROMYCIN 500 MG in DEXTROSE 5% IN WATER 250 ML 250 MG IV (02:56)
--- NOTE | 2023-06-01 03:11 | SUR.OPER ---
Supine on Padded OR bed, head on pillow, safety belt at thigh, arms secured on padded arm boards at <90 degrees abduction. Bump under right buttock. Legs uncrossed with pillow under knees, gel pad to heels, tape over blanket to lower legs.
--- NOTE | 2023-06-01 03:29 | P.PNOB_ITS ---
Date/Time Date Patient Seen: 06/01/23 Time Patient Seen: 03:29 Pain Control Pain control: epidural Pelvic Exam Dilation (cm): 7 Effacement (%): 100 station: -1 Amniotic membrane status: Intact Contractions Monitor mode: External Contraction frequency (min): 3 Contraction intensity: Moderate Status status: Category l Assessment and Plan Assessment: other Plan: Comments: I have been contacted by the patient's primary midwifery provider, Amanda Lal CNM, regarding performance of primary section due to the patient's history of shoulder dystocia with an infant that is estimated to be proximally 1 lb smaller than her current . After thorough counseling by her housekeeping supervisor, the patient has decided to proceed with prophylactic section to avoid risk of recurrent shoulder dystocia. Based on the patient's clinical history I concur with that recommendatin and I have counseled the patient regarding alternatives, risks, benefits, and potential complications associated with primary section. In addition the patient has expressed desire for permanent sterilization. She was counseled regarding alternatives, risks, benefits, and potential complications associated with bilateral salpingectomy. Patient understands that this is a procedure which will result in her permanently and irreversibly being unable to bear children without benefit of assisted reproductive technology. Further the patient understands that the procedure does carry with it a small (1-05/999) risk of failure to prevent and should such a occur it is highly likely that that would be an ectopic gestation. With full understanding of the above, a written consent was executed, signed, and witnessed this date.
--- NOTE | 2023-06-01 03:36 | PM.PREOP ---
Pre-operative Note COVID-19 COVID-19 status: Not tested Interval Note History & Physical reviewed/Exam performed by Physician: Yes Changes to H&P: No
[2023-06-01] MEDS: CEFAZOLIN 2 GM/100 ML PREMIX 100 ML IV (03:50)
--- NOTE | 2023-06-01 04:18 | RT ---
Called to OR 3 for routine do to last child having a shoulder displaisa. Baby boy is stable at this time
--- NOTE | 2023-06-01 05:11 | PM.PROC.1 ---
Procedures Date/Time Date of procedure: 06/01/23 Time of procedure: 04:07 General Procedure description: Telegraphic Instrument Supervisor Documentation I assisted the OB special education resource teacher in the section for this patient. My responsibilities included retracting and suctioning, providing fundal pressure during delivery and following with suture during closure. Please see the OB's note for details of the surgery.
[2023-06-01 05:15] VITALS: BP 141/94; PULSE 116; RESP 17; TEMP 36.3; O2SAT 100
--- NOTE | 2023-06-01 05:17 | PM.OBCS.1 ---
Operative Date/Time/Diagnoses Date of procedure: 06/01/23 Time of procedure: 03:30 Pre-op diagnosis: Intrauterine gestation, spangler, 39+4 weeks EGA History of shoulder dystocia w/ prior macrosomia/LGA infant Request for sterilization Post-op diagnosis: same Procedure & Clinicians Procedure: Primary section (Low transverse cervical) Same procedure as scheduled: Yes Indications: I have been contacted by the patient's primary midwifery provider, Amanda Lal CNM, regarding performance of primary section due to the patient's history of shoulder dystocia with an that is estimated to be proximally 1 lb smaller than her current . After thorough counseling by her service center assistant, the patient has decided to proceed with prophylactic section to avoid risk of recurrent shoulder dystocia. Based on the patient's clinical history I concur with that recommendation and I have counseled the patient regarding alternatives, risks, benefits, and potential complications associated with primary section. In addition the patient has expressed desire for permanent sterilization. She was counseled regarding alternatives, risks, benefits, and potential complications associated with bilateral salpingectomy. Patient understands that this is a procedure which will result in her permanently and irreversibly being unable to bear children without benefit of assisted reproductive technology. Further the patient understands that the procedure does carry with it a small (1-05/999) risk of failure to prevent and should such a occur it is highly likely that that would be an ectopic gestation. With full understanding of the above, a written consent was executed, signed, and witnessed this date. Surgeon: Jamal Adler Facing Cutting Machine Operator: Amanda Lal Reason for Facing Cutting Machine Operator: Facing Cutting Machine Operator required for the safe, effective, and timely completion of this surgery. Anesthesia Type: Spinal Operative Notes Findings: Viable male BW 4152 g (9 lb 2.5 oz), Apgars 8/8, delivered from the vertex presentation. Normal gravid anatomy. Closure Type: primary Specimen(s): cord blood Intraoperative meds administered: Ketorolac and Pitocin Applied: Catheter Estimated Blood Loss (mL): 500 Blood products transfused: none Procedure in detail: With her informed written consent, the patient was taken to the operating room and placed in the supine position for a primary section procedure, for the indication(s) above. The abdomen was prepped and draped in the usual manner for section and a pre-surgical timeout was taken per [facility] OR protocol. Once effective anesthesia was confirmed, a 15 cm transverse Pfannenstiel incision was made in the skin and taken down through the subcutaneous tissues to the deep fascia. The deep fascia was incised transversely, the rectus abdominal eyes bluntly and sharply, and the peritoneal cavity entered without difficulty. The lower uterine segment was visualized and the position/presentation palpated. A transverse incision at or above the vesicouterine reflection was made with Metzenbaum scissors and transverse hysterotomy performed near the midline. Amniotomy revealed clear fluid. The incision was extended bilaterally with digital traction and the infant was delivered easily from the vertex presentation. The infant was vigorous and cord clamping delayed for 60 seconds. The placenta was delivered intact using gentle cord traction and fundal massage.The uterine cavity was then cleared of any clot/debris first with a sloppy wet lap tape followed by a dry lap tape. Ring forceps were then applied to the angles and the midline of the incised NAMITA. A primary closure of the uterus was then accomplished with #1 CCGS in a running interlocking stitch followed by a 2nd layer of #1 CCGS in a running interlocking imbricating stitch. One additional figure of eight suture was required to achieve complete hemostasis. Attention was then turned to performance of the bilateral salpingectomy. The distal left fallopian tube was grasped with a [place] clamp and the LigaSure device was used to coagulate and divide the fimbria ovarica followed by proceeding across the mesosalpinx with the LigaSure device to the level of the cornua where the cornual portion of the fallopian tube was coagulated and divided. The fallopian tube on left was then passed off the field as a surgical specimen to be submitted with the right tube for pathologic evaluation. The distal right fallopian tube was grasped with a Regino clamp and the LigaSure device was used to coagulate and divide the fimbria ovarica followed by proceeding across the mesosalpinx with the LigaSure device to the level of the cornua where the cornual portion of the fallopian tube was coagulated and divided. The fallopian tube on right was then passed off the field as a surgical specimen to be submitted with the left tube for pathologic evaluation.Once pelvic hemostasis was assured, the bladder flap and anterior peritoneum were closed with a running 2-0 Vicryl suture and the fascia closed with #1 Vicryl in a running stitch initiated at both angles and tying separately near the midline. The subcutaneous tissues were reapproximated with 2-0 plain catgut suture using inverted interrupted stitches. The skin edges were then brought together with 4-0 Monocryl in a subcuticular closure and the incision was reinforced with 1 Steri-Strips. An appropriate compression dressing was applied and the patient transferred to PACU for recovery and subsequent transfer to the Center for recuperation. Complications: none Baby 1: Infant Gender: Male Presentation: vertex Position: Left Occiput Anterior Placental Delivery Description: Spontaneous Cord Vessel Description: 3 Vessels score (1 min): 8 score (5 min): 8 weight: 9 lb 2.457 oz Post-operative Condition: stable Disposition: PACU Aftercare: routine postop
[2023-06-01 05:20] VITALS: BP 127/84; PULSE 105; RESP 15; O2SAT 100
[2023-06-01 05:30] VITALS: BP 130/78; PULSE 93; RESP 14; O2SAT 88
[2023-06-01 07:28] LABS: Protein (Total) Urine Random 112.6 mg/dL (0-12)
[2023-06-01] MEDS: ACETAMINOPHEN 325 MG TABLET 650 MG PO ×3 (07:46→21:45)
[2023-06-01 09:19] LABS: Protein Creatinine Ratio Urine 2.16 GRAM/24H
[2023-06-01] MEDS: KETOROLAC 30 MG/ML VIAL IV ×2 (11:12→18:43)
[2023-06-01] MEDS: DOCUSATE 100 MG CAPSULE PO (21:45)
[2023-06-02] MEDS: KETOROLAC 30 MG/ML VIAL IV (01:31)
[2023-06-02] MEDS: ACETAMINOPHEN 325 MG TABLET 650 MG PO ×3 (06:23→23:21)
[2023-06-02 06:59] LABS: Add Manual Diff / Slide Review NO; Basophils Absolute Auto 100 /uL (0-100); Basophils Percent Auto 0.5 % (0-2); Eosinophils Absolute Auto 100 /uL (0-450); Eosinophils Percent Auto 0.8 % (2-4); Lymphocytes Absolute Auto 2100 /uL (1100-4500); Lymphocytes Percent Auto 14.7 % (25-40); Mean Corpuscular HGB Conc 32.4 % (30-36); Mean Corpuscular Hemoglobin 24.2 PG (26-34); Mean Corpuscular Volume 74.8 fL (80-100); Monocytes Absolute Auto 800 /uL (0-900); Monocytes Percent Auto 5.9 % (3-14); Neutrophils Absolute Auto 11100 /uL (1500-7000); Neutrophils Percent Auto 78.1 % (50-75); Platelet Count 173 X10^3/uL (150-400); Red Blood Cell Count 2.62 X10^6/uL (4.0-5.2); Red Cell Distribution Width 16.9 % (11.6-14.8); White Blood Cell Count 14.2 X10^3/uL (4.5-11.0)
[2023-06-02 07:02] LABS: Hemoglobin 6.4 g/dL (12.0-16.0)
[2023-06-02 07:03] LABS: Hematocrit 19.6 % (36-46)
--- NOTE | 2023-06-02 08:02 | PM.OBPN.1 ---
Subjective - OB Subjective Patient comments: no complaints, pain well controlled, incisional pain, tolerating diet and flatus present baby status: doing well and nursing well [place] feeding status: exclusively breast feeding Date Patient Seen: 06/02/23 Time Patient Seen: 08:02 Interval history: Doing extremely well POD#1 Exam Vital Signs (past 8 hours): Oxygen Delivery Method Room Air Const General: cooperative and comfortable Nutritional Appearance: average body habitus Orientation: alert and oriented x3 HENMT Head: normal to inspection, atraumatic and abrasion Ears: hearing grossly normal bilaterally Face and sinus: face symmetric Eyes General: appearance normal, both eyes and all related structures Conjunctivae: conjunctivae normal Sclera: sclerae normal EOM: EOM intact bilaterally Neck Neck: normal visual inspection Resp Effort & Inspection: normal respiratory effort and able to speak in complete sentences Auscultation: clear to auscultation bilaterally Cardio Rate: regular rate Rhythm: regular rhythm Heart Sounds: S1 normal, S2 normal and no murmurs GI Inspection: normal to inspection and incision (Compression dressing clean and dry, removed and replaced w/ Aquacel) Palpation: soft, no hepatosplenomegaly and tender (Mild, diffuse postsurgical tenderness) External Female Exam: other (No significant bleeding noted) Extrem General: no calf tenderness Psych Appearance: grossly normal Mental Status: mental status grossly normal Speech and Movement: speech and movement normal Mood: congruent mood Affect: normal affect Attitude: cooperative Thought Process: normal Thought Content: normal Judgment: judgment good Objective Labs 06/02/23 06:43 06/01/23 00:25 Labs: Laboratory Results - last 24 hr 06/01/23 06/02/23 01:15 06:43 WBC 14.2 H RBC 2.62 L Hgb 6.4 L* Hct 19.6 L* MCV 74.8 L MCH 24.2 L MCHC 32.4 RDW 16.9 H Plt Count 173 Neut % (Auto) 78.1 H Lymph % (Auto) 14.7 L [place] % (Auto) 5.9 Eos % (Auto) 0.8 L Baso % (Auto) 0.5 Neut # (Auto) 39430 H Lymph # (Auto) 2100 [place] # (Auto) 800 Eos # (Auto) 100 Baso # (Auto) 100 Protein/Creatinin Ratio 2.16 Assessment & Plan Plan day: 1 plan OB: routine postop care Comments: Possible discharge later today or tomorrow AM. Time Spent With Patient Time: Total time spent is greater than 50% in coordination of care (as documented) at patient's floor/unit and/or counseling patient: Time with patient: less than 15 minutes
[2023-06-02] MEDS: IBUPROFEN 600 MG TABLET PO ×3 (11:15→23:21)
[2023-06-02] MEDS: PRENATAL VIT,CALC/IRON/FOLIC 1 TABLET 1 TAB PO (11:15)
[2023-06-02] MEDS: LACTATED RINGERS 1,000 ML 1000 ML IV (15:12)
[2023-06-02] MEDS: IRON SUCROSE 300 MG in SODIUM CHLORIDE 0.9% 250 ML 176.667 MG IV (16:32)
[2023-06-02 20:49] LABS: Add Manual Diff / Slide Review NO; Basophils Absolute Auto 100 /uL (0-100); Basophils Percent Auto 0.5 % (0-2); Eosinophils Absolute Auto 200 /uL (0-450); Eosinophils Percent Auto 1.1 % (2-4); Lymphocytes Absolute Auto 2700 /uL (1100-4500); Mean Corpuscular HGB Conc 33.2 % (30-36); Mean Corpuscular Hemoglobin 24.9 PG (26-34); Mean Corpuscular Volume 75.1 fL (80-100); Monocytes Absolute Auto 700 /uL (0-900); Monocytes Percent Auto 4.4 % (3-14); Neutrophils Absolute Auto 11500 /uL (1500-7000); Platelet Count 220 X10^3/uL (150-400); Red Blood Cell Count 2.64 X10^6/uL (4.0-5.2); Red Cell Distribution Width 17.1 % (11.6-14.8); White Blood Cell Count 15.1 X10^3/uL (4.5-11.0)
[2023-06-02 20:52] LABS: Hematocrit 19.8 % (36-46); Hemoglobin 6.6 g/dL (12.0-16.0)
[2023-06-02] MEDS: DOCUSATE 100 MG CAPSULE PO (23:20)
[2023-06-03] MEDS: IBUPROFEN 600 MG TABLET PO (05:41)
[2023-06-03] MEDS: ACETAMINOPHEN 325 MG TABLET 650 MG PO ×2 (05:41→11:27)
[2023-06-03] MEDS: IRON SUCROSE 300 MG in SODIUM CHLORIDE 0.9% 250 ML 176.667 MG IV (07:36)
[2023-06-03 08:16] VITALS: BP 146/106; PULSE 106
[2023-06-03] MEDS: PRENATAL VIT,CALC/IRON/FOLIC 1 TABLET 1 TAB PO (08:16)
[2023-06-03] MEDS: LABETALOL 100 MG TABLET PO (08:16)
[2023-06-03] MEDS: DOCUSATE 100 MG CAPSULE PO (08:16)
[2023-06-03 08:52] LABS: Add Manual Diff / Slide Review NO; Basophils Absolute Auto 100 /uL (0-100); Basophils Percent Auto 0.6 % (0-2); Eosinophils Absolute Auto 200 /uL (0-450); Eosinophils Percent Auto 1.6 % (2-4); Lymphocytes Absolute Auto 2200 /uL (1100-4500); Lymphocytes Percent Auto 16.9 % (25-40); Mean Corpuscular HGB Conc 32.8 % (30-36); Mean Corpuscular Hemoglobin 24.6 PG (26-34); Mean Corpuscular Volume 75.2 fL (80-100); Monocytes Absolute Auto 600 /uL (0-900); Monocytes Percent Auto 4.9 % (3-14); Neutrophils Absolute Auto 9800 /uL (1500-7000); Platelet Count 223 X10^3/uL (150-400); Red Blood Cell Count 2.63 X10^6/uL (4.0-5.2); Red Cell Distribution Width 16.6 % (11.6-14.8); White Blood Cell Count 12.9 X10^3/uL (4.5-11.0)
[2023-06-03 08:54] LABS: Hematocrit 19.8 % (36-46); Hemoglobin 6.5 g/dL (12.0-16.0)
[2023-06-03 08:59] LABS: Alanine Aminotransferase 14 IU/L (<35); Albumin 2.9 g/dL (3.5-5.0); Alkaline Phosphatase 176 U/L (38-126); Aspartate Aminotransferase 30 IU/L (14-36); BUN Creatinine Ratio 16.7 (6-22); Bilirubin Total 0.5 mg/dL (0.2-1.3); Blood Urea Nitrogen 7 mg/dL (7-17); Calcium 8.3 mg/dL (8.4-10.2); Carbon Dioxide 26 mmol/L (22-32); Chloride 108 mmol/L (98-107); Estimated Glomerular Filt Rate > 60 mL/min (>60); Glucose 67 mg/dL (70-100); HEMOLYSIS < 15 (0-50); Potassium 3.6 mmol/L (3.4-5.1); Sodium 136 mmol/L (137-145); Total Protein 5.9 g/dL (6.3-8.2)
[2023-06-03 10:37] LABS: Creatinine Urine Random 43.8 mg/dL; Protein (Total) Urine Random 11 mg/dL (0-12); Protein Creatinine Ratio Urine 0.25 GRAM/24H
--- NOTE | 2023-06-03 13:58 | PM.OBDS.1 ---
Discharge Providers Provider Date of admission: 05/31/23 23:23 Discharge Date: 06/03/23 Primary care physician: Jairon Escalante MD Consults: 06/01/23 05:58 Consult to Manager Of Financial Routine Comment: Discharge provider: Amanda Lal CNM Summary Hospital Course Date Patient Seen: 06/03/23 Time Patient Seen: 13:59 Diagnoses: Preeclampsia upon admission with primary for LGA baby with a history of shoulder dystocia at her last Anemia treated with IV Fe Hospital Course: PPD2: Stable s/p Primary by OB for LGA baby with a history of a shoulder dystocia. Uncomplicated without apparent PPH led to higher than expected drop in Hgb/Hct, though patient remained asymptomatic. Significant anemia was treated with IV Fe. GHTN was diagnosed upon admission with a delay in diagnosis of preeclampsia d/t lab medhat in result of Pr:Cr. Machine was broken and Pr:Cr resulted at diagnostic level 1 day after admission. BPs began to rise this morning and labetalol was initiated with consultation by OB and BP now improved. Patient is voiding, ambulating and independently. Pain is well controlled with Tylenol and ibuprofen and she had declined narcotics throughout her course. She had a mild headache this morning, described as typical for her that resolved with PO medication and a nap. Vaginal bleeding has been scant throughout her course. Her LTAI is well approximated without sx of infection with the dressing changed from a pressure dressing to an Aquacel dressing on PPD1 and then the Aquacel replaced this morning because it became saturated when she showered. Her partner remains present and supportive. Her baby is well. She and her partner are both eager to go home with their baby. Adie has a home BP cuff and agrees to bed rest with BID BP monitoring at home. Peripartum Data Delivery Method: Section Procedures: LTAI complications: other (anemia due to hypovolemia) [place] 1: Gender: Male Disposition of : home Discharge Diagnosis (1) Anemia, : Status: Acute Problem Details: Received two doses of 300mg IV iron for total of 600mg throughout admission with Hgb/Hct unchanged over 2 days. Asymptomatic. (2) Preeclampsia: Status: Acute Problem Details: Prescribed labetalol 100mg BID for BP control/management. Instructed to check BP twice daily prior to taking labetalol. BP follow up in clinic on 06/05/2023 (3) History of shoulder dystocia in prior : Status: Acute (4) Status post primary low transverse section: Status: Acute Status at Discharge Cognitive/behavioral status at discharge: oriented and calm Functional status at discharge: independent ambulation Time Spent with Patient Time attestation: Total time spent providing and/or coordinating discharge services: 90min Objective Labs 06/03/23 08:29 06/03/23 08:29 Labs: Laboratory Results - last 24 hr 06/02/23 06/03/23 06/03/23 20:35 08:29 09:46 WBC 15.1 H 12.9 H RBC 2.64 L 2.63 L Hgb 6.6 L* 6.5 L* Hct 19.8 L* 19.8 L* MCV 75.1 L 75.2 L MCH 24.9 L 24.6 L MCHC 33.2 32.8 RDW 17.1 H 16.6 H Plt Count 220 223 Neut % (Auto) 76.0 H 76.0 H Lymph % (Auto) 18.0 L 16.9 L [place] % (Auto) 4.4 4.9 Eos % (Auto) 1.1 L 1.6 L Baso % (Auto) 0.5 0.6 Neut # (Auto) 98162 H 9800 H Lymph # (Auto) 2700 2200 [place] # (Auto) 700 600 Eos # (Auto) 200 200 Baso # (Auto) 100 100 Sodium 136 L Potassium 3.6 Chloride 108 H Carbon Dioxide 26 BUN 7 Creatinine 0.42 L Estimated GFR > 60 BUN/Creatinine Ratio 16.7 Glucose 67 L Calcium 8.3 L Total Bilirubin 0.5 AST 30 ALT 14 Alkaline Phosphatase 176 H Total Protein 5.9 L Albumin 2.9 L Globulin 3.0 Albumin/Globulin Ratio 1.0 U Random Total Protein 11 Urine Creatinine 43.8 Protein/Creatinin Ratio 0.25 Exam Vital Signs (past 8 hours): - 06/03/23 11:35 Pulse Rate 106 H Blood Pressure 135/94H Oxygen Delivery Method Room Air Temp 98.4F Temporal Const General: cooperative, healthy appearing and comfortable Nutritional Appearance: average body habitus and well nourished Orientation: alert, awake and oriented x3 Other: Fundus firm @ U-2, lochia scant, no clots. Skin Other: LTAI appears clean, dry, with minimal pink color. No signs of infection. Neuro General: patient alert, patient awake, patient oriented x3 and gait normal Cognition: normal cognition Gait: normal gait Extrem Right upper extremity: normal to inspection Left upper extremity: normal to inspection Right lower extremity: normal to inspection and edema Left lower extremity: normal to inspection Discharge Plan Discharge Plan Patient Disposition: Home Provider Discharge Comment: bed rest and 2x/day BP checks at home Discharge orders & Medications Prescriptions: New ibuprofen 600 mg Tablet 600 mg PO Q6H 14 Days Qty: 60 0RF labetalol 100 mg tablet 100 mg PO BID Qty: 90 0RF Continued prenat.vits,alem,[id number] Tablet 1 tab PO DAILY Follow up/Referrals: Jairon Escalante MD [Primary Care Provider] - Amanda Lal CNM [[employer]] - (Follow-up BP check in office 06/06/23 @ 10am Follow-up incision check in office 06/08/23 @ 1pm Follow-up 2wk phone call 06/15/23 @ 2p, Follow-up 6wk in office 07/06/23 @ 1:15pm) Diet/Activity/Treatments Diet: Diet as Tolerated and Regular Diet comment: Adequate hydration and high-fiber diet Activity: Limited/minimal activity for 2weeks PP, BPs 2x/day Skin/Wound/Dressing Care Report to your healthcare provider any signs of infection, such as:: chills, fever, increased pain, unusual drainage and unusual redness Dressing: Leave dressing on until next clinic appt on 06/08/23 Visit Report/Discharge Packet Stand Alone Forms: Patient Portal/API, Stroke Signs & Symptoms Discharge Data Primary Care Provider: Jairon Escalante
== END 2023-06-03 15:25 | disposition home or self-care (01) | DRG 539 ==
PROVIDERS: Obstetrics & Gynecology; Admitting Provider Nurse Practitioner Obstetrics & Gynecology; PCP Family Medicine; Referring Provider Nurse Practitioner Obstetrics & Gynecology; Visit Provider Nurse Practitioner Obstetrics & Gynecology
PROC: 10D00Z1 Extraction of Products of Conception, Low, Open Approach (ICD-10-PCS; CPT 59514; principal; 2023-06-01 03:30)
DX: O36.63X0 Maternal care for excessive fetal growth, third trimester, not applicable or unspecified (principal); D62 Acute posthemorrhagic anemia; Z67.40 Type O blood, Rh positive; Z3A.39 39 weeks gestation of pregnancy; O99.02 Anemia complicating childbirth; D64.9 Anemia, unspecified; Z37.0 Single live birth; O67.8 Other intrapartum hemorrhage; O14.94 Unspecified pre-eclampsia, complicating childbirth; O99.03 Anemia complicating the puerperium; Z30.2 Encounter for sterilization
CPT/HCPCS: 36415; 59050; 59514; 76815; 80053; 81003; 82570; 84156; 85025; 86850; 86900; 86901; G0379; J0690; J1756; J1885; J2274; J2405; J2590; J3010